=== PATIENT | male | born 1980 | race Two or more races ===

== ENCOUNTER 2022-08-31 18:02 | Emergency (ER) | payer OTHER ==
[~2022-08-31] VITALS: Ht 180.3 cm; Wt 79.5 kg
[2022-08-31 20:56] LABS: APPEARANCE,URINE CLEAR (CLEAR); BILIRUBIN,URINE NEGATIVE (NEGATIVE); GLUCOSE, URINE (UA) NEGATIVE (NEGATIVE); KETONES,URINE NEGATIVE (NEGATIVE); LEUKOCYTE ESTERASE ,URINE NEGATIVE (NEGATIVE); NITRATE,URINE NEGATIVE (NEGATIVE); OCCULT BLOOD,URINE NEGATIVE (NEGATIVE); PROTEIN,URINE NEGATIVE (NEGATIVE); UROBILINOGEN,URINE <=1.0 mg/dL (<=1.0)
[2022-08-31 22:34] VITALS: BP 125/85
== END 2022-08-31 22:37 | disposition home or self-care (01) ==
LOC: EMS 18:13
DX: K40.90 Unilateral inguinal hernia, without obstruction or gangrene, not specified as recurrent (principal); Z87.891 Personal history of nicotine dependence
CPT/HCPCS: 76870; 81003; 99284

== ENCOUNTER 2024-03-11 16:39 | Inpatient (IN) | payer OTHER ==
[~2024-03-11] VITALS: Ht 180.3 cm; Wt 79.5 kg
[2024-03-11] MEDS ORDERED: MAGNESIUM HYDROXIDE SUSPENSION 30 ML UDCUP PO PRN (17:30)
[2024-03-11] MEDS: SODIUM CHLORIDE 0.9% 1,000 ML IV ONE ×2 (17:43→18:01)
[2024-03-11 17:48] LABS: BASOPHILS % (AUTO) 0.5 % (0.0-2.0); EOSINOPHILS % (AUTO) 1.4 % (1.0-6.0); HEMATOCRIT 33.9 % (41-53); HEMOGLOBIN 11.6 g/dL (13.5-17.5); LYMPHOCYTES # (AUTO) 1.7 K/uL (1.0-4.8); LYMPHOCYTES % (AUTO) 30.7 % (22.0-44.0); MEAN CORPUSCULAR HEMOGLOBIN 32.4 pg (26.0-34.0); MEAN CORPUSCULAR HGB CONC 34.2 G/dL (31.0-37.0); MEAN CORPUSCULAR VOLUME 95 fL (80-100); MONOCYTES # (AUTO) 0.4 K/uL (0.1-1.0); MONOCYTES % (AUTO) 8.2 % (2.0-9.0); NEUTROPHILS # (AUTO) 3.3 K/uL (1.8-7.7); NEUTROPHILS % (AUTO) 59.2 % (40.0-70.0); PLATELET COUNT (AUTO) 226 K/uL (150-450); RED BLOOD CELL COUNT(AUTO) 3.58 MIL/uL (4.50-5.90); RED CELL DISTRIBUTION WIDTH 12.8 % (11.5-14.5); WHITE BLOOD COUNT (AUTO) 5.5 K/uL (4.5-11.0)
[2024-03-11 17:58] LABS: ANION GAP 7 mmol/L (8-16); CALCIUM, TOTAL 9.6 mg/dL (8.8-10.5); CARBON DIOXIDE 32 mmol/L (22-29); CHLORIDE 103 mmol/L (98-107); CREATININE 1.18 mg/dL (0.60-1.30); GLOMERULAR FILTR. RATE CALC > 60 mL/min (>60); GLUCOSE,RANDOM 91 mg/dL (70-110); POTASSIUM 4.2 mmol/L (3.5-5.1); SODIUM SERUM 142 mmol/L (136-145); UREA NITROGEN, BLOOD 13 mg/dL (7-18)
[2024-03-11] MEDS: LORazepam 2 MG/ML VIAL IVP PRN (18:01)
[2024-03-11] MEDS: ONDANSETRON HCL 4 MG/2 ML VIAL IVP PRN (18:01)
[2024-03-11] MEDS: ACETAMINOPHEN 325 MG TABLET PO PRN (18:02)
[2024-03-11 18:04] LABS: ALCOHOL, BLOOD (SERUM) < 3 mg/dL (0-10)
[2024-03-11 18:05] LABS: ALANINE AMINOTRANSFERASE 29 U/L (12-78); ALBUMIN 4.1 g/dL (3.4-5.0); ALKALINE PHOSPHATASE 36 U/L (46-116); ASPARTATE AMINOTRANSFERASE 20 U/L (15-37); BILIRUBIN,TOTAL 0.6 mg/dL (0.1-1.0); TOTAL PROTEIN, SERUM 7.4 g/dL (6.4-8.2)
[2024-03-11] MEDS: FAMOTIDINE 20 MG TABLET PO SCH (20:09)
[2024-03-11 23:00] VITALS: BP 121/72; PULSE 82; RESP 18; TEMP 98.4
[2024-03-12 05:54] VITALS: BP 108/66; PULSE 64; RESP 18; TEMP 97.9
[2024-03-12 06:25] LABS: GLUCOMETER DEV NAME(LOC) 6S.2; GLUCOSE,POINT OF CARE 100 MG/DL (70-110)
[2024-03-12 15:43] LABS: APPEARANCE,URINE CLEAR (CLEAR); BILIRUBIN,URINE NEGATIVE (NEGATIVE); COLOR,URINE LIGHT YELLOW (YELLOW); GLUCOSE, URINE (UA) NEGATIVE (NEGATIVE); KETONES,URINE NEGATIVE (NEGATIVE); LEUKOCYTE ESTERASE ,URINE MODERATE (NEGATIVE); NITRATE,URINE NEGATIVE (NEGATIVE); OCCULT BLOOD,URINE NEGATIVE (NEGATIVE); PROTEIN,URINE NEGATIVE (NEGATIVE); SPECIFIC GRAVITIY, URINE 1.016 (1.003-1.030); UROBILINOGEN,URINE <=1.0 mg/dL (<=1.0)
[2024-03-12 15:51] LABS: ALCOHOL, URINE DRUG SCREEN NEGATIVE (NEGATIVE); AMPHET/METH SCREEN,URINE POSITIVE (NEGATIVE); BARBITURATE SCREEN, URINE NEGATIVE (NEGATIVE); BENZODIAZEPINES SCREEN,URINE NEGATIVE (NEGATIVE); CANNABINOID SCREEN,URINE POSITIVE (NEGATIVE); COCAINE SCREEN,URINE NEGATIVE (NEGATIVE); METHADONE SCREEN, URINE NEGATIVE (NEGATIVE); OPIATE SCREEN,URINE NEGATIVE (NEGATIVE); PHENCYCLIDINE SCREEN,URINE NEGATIVE (NEGATIVE)
[2024-03-12 16:13] LABS: BACTERIA,URINE Few /HPF (None Seen); RBC,URINE None Seen /HPF (0-2); SQUAMOUS EPITHELIAL CELL,UR Rare /LPF (None Seen)
[2024-03-12 21:45] VITALS: BP 117/80; PULSE 58; RESP 18; TEMP 98.3
[2024-03-13 08:29] VITALS: BP 144/68; PULSE 55; RESP 18; TEMP 97.2
[2024-03-13] MEDS ORDERED: CefTRIAXone 1 GM/DEXTROSE 50 ML IV SCH (10:00)
[2024-03-13] MEDS: CIPROFLOXACIN HCL 250 MG TABLET PO SCH (10:51)
[2024-03-13 20:15] VITALS: BP 123/65; PULSE 66; RESP 16; TEMP 98.2
[2024-03-13] MEDS: ZOLPIDEM TARTRATE 5 MG TABLET PO PRN (20:27)
== END 2024-03-14 15:35 | DRG 897 ==
LOC: EMS 16:42 → EDH 17:24 → 6S 21:51
PROVIDERS: ADMIT Internal Medicine; ATTEND Internal Medicine
DX: F19.139 Other psychoactive substance abuse with withdrawal, unspecified (principal); N39.0 Urinary tract infection, site not specified; F11.13 Opioid abuse with withdrawal; F10.10 Alcohol abuse, uncomplicated
CPT/HCPCS: 80053; 80307; 81001; 82962; 83735; 85025; 87086; 87186; 99285; G0480; J0696; J2060; J2405; J7030